=== PATIENT | female | born 1965 | race Caucasian/White ===

== ENCOUNTER 2025-02-05 06:32 | Day surgery (SDC) | payer BC, SELFPAY | END 2025-02-05 14:43 | disposition home or self-care (01) | LOC: GI 06:32 | PROVIDERS: ATTENDING PHYSICIAN Internal Medicine Gastroenterology | DX: Z12.11 Encounter for screening for malignant neoplasm of colon (principal); K57.30 Diverticulosis of large intestine without perforation or abscess without bleeding; R13.10 Dysphagia, unspecified; K44.9 Diaphragmatic hernia without obstruction or gangrene; K22.89 Other specified disease of esophagus; K31.89 Other diseases of stomach and duodenum; R01.2 Other cardiac sounds; K62.1 Rectal polyp; Z86.0101 Personal history of adenomatous and serrated colon polyps | CPT/HCPCS: 45385; 45380; 43239; 88305; 88342 ==